=== PATIENT | female | born 1960 | race Caucasian/White ===

== ENCOUNTER 2019-03-18 15:04 | Observation (INO) | payer MEDICARE ==
[2019-03-18 15:52] LABS: ADD MAN DIFF? NO
[2019-03-18 15:53] LABS: WHITE BLOOD COUNT 8.3 10^3/ul (4.8-10.8)
[2019-03-18 15:53] LABS: BASOPHILS % 0.5 % (0.0-2.0); EOSINOPHILS # 0.1 10^3/ul (0.0-0.5); EOSINOPHILS % 1.3 % (0.0-7.0); HEMATOCRIT 43.4 % (37.0-47.0); HEMOGLOBIN 14.5 g/dl (12.0-16.0); LYMPHOCYTES # 2.6 10^3/ul (0.8-2.9); LYMPHOCYTES % 31.4 % (15.0-51.0); MEAN CORPUSCULAR HEMOGLOBIN 29.6 pg (29.0-33.0); MEAN CORPUSCULAR HGB CONC 33.4 g/dl (32.0-37.0); MEAN CORPUSCULAR VOLUME 88.6 fl (82.0-101.0); MEAN PLATELET VOLUME 12.3 fl (7.4-10.4); MONOCYTE # 0.6 10^3/ul (0.3-0.9); MONOCYTES % 7.5 % (0.0-11.0); NEUTROPHIL # 4.9 10^3/ul (1.6-7.5); NEUTROPHILS % 58.9 % (39.0-77.0); PLATELET COUNT 141 10^3/UL (140-415); RED CELL DISTRIBUTION WIDTH 12.5 % (11.5-14.5)
[2019-03-18 16:04] LABS: ALANINE AMINOTRANSFERASE 50 IU/L (13-69); ALBUMIN 4.1 g/dl (3.3-4.9); ALBUMIN/GLOBULIN RATIO 0.87; ALKALINE PHOSPHATASE 113 IU/L (42-121); ANION GAP 9 (5-13); ASPARTATE AMINO TRANSFERASE 37 IU/L (15-46); BILIRUBIN,INDIRECT 0.8 mg/dl (0-1.1); BILIRUBIN,TOTAL 0.8 mg/dl (0.2-1.3); BLOOD UREA NITROGEN 14 mg/dl (7-20); CALCIUM 9.7 mg/dl (8.4-10.2); CARBON DIOXIDE 25 mmol/L (21-31); CHLORIDE 103 mmol/L (97-110); CREATININE 0.72 mg/dl (0.44-1.00); Estimated GFR > 60 mL/min (>60); GLUCOSE 373 mg/dl (70-220); LIPASE 59 U/L (23-300); POTASSIUM 4.2 mmol/L (3.5-5.1); SODIUM 137 mmol/L (135-144); TOTAL PROTEIN 8.8 g/dl (6.1-8.1)
[2019-03-18 16:16] LABS: TROPONIN-I 0.024 ng/ml (0.000-0.120)
[2019-03-18] MEDS ORDERED: NACL 0.9% 3 ML SYG IV (17:00)
[2019-03-18] MEDS ORDERED: ACETAMINOPHEN 325 MG TAB PO (17:00)
[2019-03-18] MEDS ORDERED: ONDANSETRON 4 MG INJ IV (17:00)
[2019-03-18] MEDS: ACETAMINOPHEN 325 MG TAB PO (17:28)
[2019-03-18] MEDS: ONDANSETRON 4 MG INJ IV ×2 (17:28→23:50)
[2019-03-18] MEDS ORDERED: GLUCOSE GEL 15 GRAM TUBE BUCCAL (17:30)
[2019-03-18] MEDS ORDERED: DEXTROSE 50% 50 ML SYRINGE IV ×2 (17:30)
[2019-03-18] MEDS ORDERED: GLUCOSE GEL 15 GRAM TUBE PO ×2 (17:30)
[2019-03-18] MEDS ORDERED: GLUCAGON 1 MG INJ IM (17:30)
[2019-03-18] MEDS: ASPIRIN 325 MG TAB PO (17:53)
[2019-03-18] MEDS: IBUPROFEN 600 MG TAB PO (17:53)
[2019-03-18] MEDS: INSULIN ASPART [NOVOLOG] 3 ML PEN SC ×2 (18:36→21:01)
[2019-03-18 19:04] LABS: D-DIMER 421.89 ng/ml (<460)
[2019-03-18] MEDS: KETOROLAC 15 MG INJ IV (19:35)
[2019-03-18 22:45] LABS: CREATINE KINASE 179 IU/L (23-200)
[2019-03-18 22:57] LABS: CK INDEX 6.3
[2019-03-18 22:59] LABS: TROPONIN-I 0.702 ng/ml (0.000-0.120)
[2019-03-18] MEDS: AL HYDROX/MG HYDROX/SIMETH 30 ML CUP PO (23:06)
[2019-03-18] MEDS: NITROGLYCERIN (SL) 0.4 MG TAB SL (23:36)
[2019-03-19] MEDS: ACCU-CHEK XX (02:39)
[2019-03-19] MEDS ORDERED: HEPARIN 1000 UNITS/ML 10 ML INJ IV ×2 (03:00→09:00)
[2019-03-19] MEDS: HEPARIN 1000 UNITS/ML 10 ML INJ IV (03:28)
[2019-03-19] MEDS: HEPARIN 25000 UNITS/250 ML 250 ML IV (03:33)
[2019-03-19] MEDS: NITROGLYCERIN (SL) 0.4 MG TAB SL ×2 (03:36→03:37)
[2019-03-19 03:37] LABS: ADD MAN DIFF? NO
[2019-03-19 03:47] LABS: HEMOGLOBIN A1C 10.5 % (0-5.9)
[2019-03-19] MEDS: ATORVASTATIN 80 MG TAB PO (03:51)
[2019-03-19] MEDS: LISINOPRIL 10 MG TAB PO (03:51)
[2019-03-19 03:55] LABS: CREATINE KINASE 803 IU/L (23-200)
[2019-03-19 03:57] LABS: ALANINE AMINOTRANSFERASE 53 IU/L (13-69); ALBUMIN 4.2 g/dl (3.3-4.9); ALBUMIN/GLOBULIN RATIO 0.87; ALKALINE PHOSPHATASE 121 IU/L (42-121); ANION GAP 10 (5-13); ASPARTATE AMINO TRANSFERASE 106 IU/L (15-46); BLOOD UREA NITROGEN 17 mg/dl (7-20); CALCIUM 9.9 mg/dl (8.4-10.2); CARBON DIOXIDE 25 mmol/L (21-31); CHLORIDE 104 mmol/L (97-110); CREATININE 0.76 mg/dl (0.44-1.00); Estimated GFR > 60 mL/min (>60); GLUCOSE 267 mg/dl (70-220); MAGNESIUM 1.9 mg/dl (1.7-2.5); PHOSPHORUS 4.1 mg/dl (2.5-4.9); POTASSIUM 5.1 mmol/L (3.5-5.1); SODIUM 139 mmol/L (135-144)
[2019-03-19 03:58] LABS: INR 1.02; PROTIME 13.5 Sec (11.9-14.9); PT RATIO 1.1
[2019-03-19 03:59] LABS: PARTIAL THROMBOPLASTIN TIME 35.1 Sec (23.0-35.0)
[2019-03-19 03:59] LABS: WHITE BLOOD COUNT 13.8 10^3/ul (4.8-10.8)
[2019-03-19 04:00] LABS: BASOPHIL # 0.1 10^3/ul (0.0-0.1); BASOPHILS % 0.4 % (0.0-2.0); EOSINOPHILS % 0.1 % (0.0-7.0); HEMATOCRIT 43.3 % (37.0-47.0); LYMPHOCYTES # 2.2 10^3/ul (0.8-2.9); LYMPHOCYTES % 15.6 % (15.0-51.0); MEAN CORPUSCULAR HEMOGLOBIN 30.2 pg (29.0-33.0); MEAN CORPUSCULAR HGB CONC 34.6 g/dl (32.0-37.0); MEAN CORPUSCULAR VOLUME 87.3 fl (82.0-101.0); MEAN PLATELET VOLUME 12.8 fl (7.4-10.4); MONOCYTE # 0.6 10^3/ul (0.3-0.9); MONOCYTES % 4.7 % (0.0-11.0); NEUTROPHIL # 10.8 10^3/ul (1.6-7.5); NEUTROPHILS % 78.3 % (39.0-77.0); PLATELET COUNT 138 10^3/UL (140-415); RED BLOOD COUNT 4.96 10^6/ul (4.20-5.40); RED CELL DISTRIBUTION WIDTH 12.5 % (11.5-14.5)
[2019-03-19 04:08] LABS: CK INDEX 7.9
[2019-03-19] MEDS: morphine 2 MG INJ IV (04:15)
[2019-03-19] MEDS ORDERED: morphine 2 MG INJ IV (05:30)
[2019-03-19] MEDS ORDERED: LORAZEPAM 0.5 MG TAB PO (07:00)
[2019-03-19] MEDS ORDERED: INSULIN ASPART [NOVOLOG] 3 ML PEN SC (09:00)
[2019-03-19] MEDS: INSULIN ASPART [NOVOLOG] 3 ML PEN SC ×2 (09:45→13:50)
[2019-03-19] MEDS ORDERED: METOPROLOL 50 MG TAB PO (10:30)
[2019-03-19] MEDS: ASPIRIN 81 MG TAB PO (10:59)
[2019-03-19 11:02] LABS: CREATINE KINASE 1129 IU/L (23-200)
[2019-03-19 11:12] LABS: PARTIAL THROMBOPLASTIN TIME 177.8 Sec (23.0-35.0)
[2019-03-19 11:15] LABS: CK INDEX 8.5
[2019-03-19] MEDS: ISOSORBIDE MONONITRATE(SR)60 MG TAB PO (11:40)
[2019-03-19 14:41] LABS: CREATINE KINASE 1161 IU/L (23-200)
[2019-03-19 14:52] LABS: CK INDEX 7.4
[2019-03-19] MEDS ORDERED: ATORVASTATIN 80 MG TAB PO (21:00)
[2019-03-20] MEDS ORDERED: ACCU-CHEK XX (02:00)
[2019-03-20] MEDS ORDERED: LISINOPRIL 10 MG TAB PO (09:00)
== END 2019-03-19 15:10 | disposition short-term general hospital (02) ==
LOC: E/R 15:04 → TEL 16:44
DX: I24.9 Acute ischemic heart disease, unspecified (principal); J45.20 Mild intermittent asthma, uncomplicated; E11.65 Type 2 diabetes mellitus with hyperglycemia; Z79.4 Long term (current) use of insulin
CPT/HCPCS: 36415; 71045; 80053; 82550; 82553; 82962; 83036; 83690; 83735; 84100; 84443; 84484; 85025; 85378; 85610; 85730; 93005; 93306; 99285-25; G0378